=== PATIENT | female | born 1995 | race Caucasian/White ===

== ENCOUNTER 2018-01-21 12:14 | Emergency (ER) | payer SELFPAY ==
[~2018-01-21] VITALS: Ht 154.9 cm; Wt 56.7 kg
[2018-01-21 13:27] VITALS: BP 116/58
--- NOTE | 2018-01-21 13:33 | PHYS DOC ---
Adult General Chief Complaint Chief Complaint: ABSCESS HPI HPI Patient is a 22 year old female presents the ED complaining of abscess to left thigh 1 week. States it started out as mild redness but it has been increasing over the last week. Describes the pain as sharp. Rates the pain as 6 out of 10. Denies nausea/vomiting, abdominal pain, diarrhea, fever, chest pain, shortness of breath, lower leg swelling or weakness. Review of Systems Review of Systems Constitutional: Denies fever or chills [] Respiratory: Denies cough or shortness of breath [] Cardiovascular: No additional information not addressed in HPI [] GI: Denies abdominal pain, nausea, vomiting, bloody stools or diarrhea [] : Denies dysuria or hematuria [] Musculoskeletal: Denies back pain or joint pain [] Integument: Complains of abscess to left thigh. Denies rash or skin lesions [] Neurologic: Denies headache, focal weakness or sensory changes [] All other systems were reviewed and found to be within normal limits, except as documented in this note. Current Medications Current Medications Current Medications Medications (Trade) Dose Ordered Sig/Krissy Start Time Stop Time Status Last Admin Dose Admin Lidocaine/Sodium Bicarbonate (Buffered Lidocaine 1%) 3 ml 1X ONCE 01/21/18 14:00 01/21/18 14:01 DC Allergies Allergies Allergies Coded Allergies Type Severity Reaction Last Updated Verified No Known Drug Allergies 01/21/18 No Physical Exam Physical Exam Constitutional: Well developed, well nourished, no acute distress, non-toxic appearance. [] HENT: Normocephalic, atraumatic Abdomen: Bowel sounds normal, soft, no tenderness, no masses, no pulsatile masses. [] Skin: Warm, dry. 3 x 3 cm circular thigh abscess Back: No tenderness, no CVA tenderness. [] Extremities: no bony tenderness, no cyanosis, no clubbing, ROM intact, no edema. [] Neurologic: Alert and oriented X 3, normal motor function, normal sensory function, no focal deficits noted. [] Psychologic: Affect normal, judgement normal, mood normal. [] Current Patient Data Vital Signs Vital Signs Date Time Temp Pulse Resp B/P (MAP) Pulse Ox O2 Delivery O2 Flow Rate FiO2 01/21/18 13:27 98.3 67 20 116/58 (77) 96 Room Air 98.3 EKG EKG [] Radiology/Procedures Radiology/Procedures [] Course & Med Decision Making Course & Med Decision Making Pertinent Labs and Imaging studies reviewed. (See chart for details) []Abscess incision and drainage completed. No complications. Tetanus UTD. Will discharge with Bactrim and Keflex. Discussed symptomatic treatment. Discussed follow-up for wound reevaluation in 3 days. Provided contact information/ education. Discussed reasons to return to the ED. Patient understands and agrees with plan. Dragon Disclaimer Dragon Disclaimer This electronic medical record was generated, in whole or in part, using a voice recognition dictation system. Departure Departure Impression: Primary Impression: Abscess Disposition: HOME, SELF-CARE Condition: IMPROVED Referrals: NO PCP (PCP) ROSAS GUTIÉRREZ MD Patient Instructions: Abscess, Abscess, Care After Scripts Cephalexin (CEPHALEXIN) 500 Mg Capsule 1 CAP PO TID for 7 Days, #21 CAP Prov: FLY HERNÁNDEZ 01/21/18 Sulfamethoxazole/Trimethoprim (BACTRIM 400-80 MG TABLET) 1 Each Tablet 1 TAB PO BID for 7 Days, #14 TAB Prov: FLY HERNÁNDEZ 01/21/18 Incision and Drainage Incision and Drainage : Blade Size: 11 I & D Procedure: betadine prep Progress Well tolerated. No complications. FLY HERNÁNDEZ Jan 21, 2018 13:32
[2018-01-21] MEDS ORDERED: LIDOCAINE WITH 8.4% SOD BICARB 3 ML DISP.SYRIN. INJ ONE (14:00)
[2018-01-21] MEDS ORDERED: CEPH500C PO (14:19)
[2018-01-21] MEDS ORDERED: SULF1TAB23 PO (14:19)
== END 2018-01-21 14:52 | disposition home or self-care (01) ==
LOC: ER 12:14
DX: L02.416 Cutaneous abscess of left lower limb (principal)
CPT/HCPCS: 10060; 99283